=== PATIENT | female | born 1995 | race Caucasian/White ===

== ENCOUNTER 2016-08-30 10:16 | Emergency (ER) | payer OTHER ==
--- NOTE | 2016-08-31 15:40 | ER ---
ADMIT: 08/30/2016 RM/LOC: ER [facility] MR#: [id number] [place], [place] [id number] RONNA HUERTAS [address] [address] Emergency Room Report SEX: F AGE: 21 : 1995 DATE: 08/30/2016 For chief complaint, history of present illness, past medical history, medications, allergies, review of systems, including physical exam, please see my T-sheet. INTERIM HISTORY: The patient is a 21-year-old, white female, who presents to the emergency room with a swollen tender areas on her anterior wilson. She notes some about an hour ago. She thought that they were little bit itchy. She denies anything new or different. She was at work tonight. She worked overnights when it happened. PHYSICAL EXAMINATION: Vital signs are stable. She is tender, almost ecchymotic areas on her anterior shins, concerning for a very mild polyarteritis nodosum. CBC is normal. IMPRESSION: Polyarteritis nodosum. Home, rest, activity as tolerated. Anti-inflammatories as needed. Ice or heat to the areas. Following up with Dr. Webber if problems or symptoms change or worsen. The patient is in stable condition at discharge. MARANDA Marquez / Pankaj Reno MD / modl JOB #: [id number] CC: Pankaj Reno MD, Attending Physician Yair Webber MD, Family Physician
== END 2016-08-30 11:50 | disposition home or self-care (01) ==
LOC: ER 10:16
DX: M30.0 Polyarteritis nodosa (principal); Z88.8 Allergy status to other drugs, medicaments and biological substances; Z79.899 Other long term (current) drug therapy